=== PATIENT | male | born 1970 | race Two or more races ===

== ENCOUNTER 2021-02-03 20:13 | Emergency (ER) | payer MEDICAID ==
[~2021-02-03] VITALS: Ht 175.3 cm; Wt 86.0 kg
[2021-02-03 21:08] VITALS: BP 155/88
[2021-02-03] MEDS ORDERED: IBUPROFEN 600MG TABLET PO ONE (21:15)
[2021-02-03] MEDS ORDERED: TETANUS, DIPHTHERIA, PERTUSSIS VAC/PF 0.5ML (>10YR OLD) IM ONE (21:15)
[2021-02-03] MEDS ORDERED: IBUP-2029 MT (21:48)
[2021-02-03] MEDS ORDERED: AMOX-424 MT (21:49)
[2021-02-03] MEDS ORDERED: AZIT250T MT (21:49)
== END 2021-02-03 22:04 | disposition home or self-care (01) ==
LOC: ER 20:13
DX: S41.151A Open bite of right upper arm, initial encounter (principal); L03.113 Cellulitis of right upper limb; W55.01XA Bitten by cat, initial encounter; Y93.89 Activity, other specified; Y92.89 Other specified places as the place of occurrence of the external cause; Y99.8 Other external cause status; Z79.899 Other long term (current) drug therapy
CPT/HCPCS: 90471; 90715; 99283

== ENCOUNTER 2021-10-17 01:48 | Emergency (ER) | payer MEDICAID ==
[~2021-10-17] VITALS: Ht 175.3 cm; Wt 89.9 kg
[~2021-10-17 01:48] MED LIST: AMOX-424 MT; AZIT250T MT; IBUP-2029 MT
[2021-10-17 02:03] VITALS: BP 139/88
[2021-10-17] MEDS ORDERED: ONDA4TAB50 MT (04:07)
[2021-10-17] MEDS ORDERED: ONDANSETRON 4MG ODT PO ONE (04:15)
[2021-10-17] MEDS ORDERED: ONDA4TAB11 PO (13:47)
== END 2021-10-17 06:48 | disposition home or self-care (01) ==
LOC: ER 01:48
DX: R11.2 Nausea with vomiting, unspecified (principal); R19.7 Diarrhea, unspecified; K21.9 Gastro-esophageal reflux disease without esophagitis
CPT/HCPCS: 99283; Q0162